=== PATIENT | female | born 1990 ===

== ENCOUNTER 2020-03-19 13:36 | Inpatient (IN) ==
[2020-03-19] MEDS ORDERED: ETOMIDATE 20 MG/10 ML VIAL IV ONE ×2 (15:00→15:05)
[2020-03-19] MEDS ORDERED: VECURONIUM 10 MG VIAL IV ONE ×2 (15:01→15:06)
[2020-03-19] MEDS ORDERED: niCARdipine INJ 25 MG in SODIUM CHLORIDE 0.9% 240 ML IV PRN (15:25)
[2020-03-19] MEDS ORDERED: niCARdipine 25 MG/10 ML VIAL IV ONE (15:26)
[2020-03-19] MEDS ORDERED: ONDANSETRON 4 MG/2 ML VIAL IV PRN (15:55)
[2020-03-19] MEDS ORDERED: hydrALAZINE 20 MG/1 ML VIAL IV PRN (15:55)
[2020-03-19] MEDS ORDERED: ALBUTEROL 2.5 MG/3 ML NEB RESP TX PRN (15:55)
[2020-03-19] MEDS ORDERED: ACETAMINOPHEN 325 MG TABLET PO PRN (15:55)
[2020-03-19] MEDS ORDERED: DOCUSATE SODIUM 100 MG CAPSULE PO PRN (15:58)
[2020-03-19] MEDS ORDERED: PANTOPRAZOLE 40 MG VIAL IV SCH (16:00)
[2020-03-19] MEDS: SEVELAMER CARBONATE 800 MG TABLET PO SCH (16:57)
[2020-03-19] MEDS ORDERED: METOPROLOL TARTRATE 5 MG/5 ML VIAL IV ONE (17:27)
[2020-03-19 17:47] LABS: ABG Base Excess -6.7 MMOL/L (-2.5-2.5); ABG Oxygen Saturation 95.1 % (95-100); ABG PH 7.317 (7.35-7.45); ABG PO2 91.5 MM HG (80-95); ABG TCO2 16.8 MMOL/L (23-27); Allen Test Positive; Pt O2 Delivery Device Ventilator
[2020-03-19] MEDS ORDERED: MIDAZOLAM 100 MG in SODIUM CHLORIDE 0.9% 80 ML IV PRN (17:55)
[2020-03-19] MEDS ORDERED: fentaNYL INJ 1,250 MCG in SODIUM CHLORIDE 0.9% 225 ML IV PRN (17:55)
[2020-03-19] MEDS ORDERED: NOREPINEPHRINE 4 MG/4 ML VIAL IV ONE (19:37)
[2020-03-19] MEDS: NOREPINEPHRINE 8 MG in SODIUM CHLORIDE 0.9% 242 ML IV PRN (19:43)
[2020-03-19] MEDS ORDERED: carvediloL 12.5 MG TABLET PO SCH (21:00)
[2020-03-19] MEDS ORDERED: DEXTROSE 50% 25 GM/50 ML VIAL IV ONE (23:21)
[2020-03-20] MEDS ORDERED: DEXTROSE 50% 25 GM/50 ML VIAL IV ONE (03:46)
[2020-03-20 04:37] LABS: ABG Base Excess -2.7 MMOL/L (-2.5-2.5); ABG HCO3 18.5 MMOL/L (20-26); ABG Oxygen Saturation 99.8 % (95-100); ABG PCO2 21.1 MM HG (35-48); ABG PH 7.561 (7.35-7.45); ABG PO2 394.6 MM HG (80-95); ABG TCO2 19.2 MMOL/L (23-27); Allen Test Positive; Pt O2 Delivery Device Ventilator
[2020-03-20 05:24] LABS: Eosinophils % 1.1 % (0.00-10.9); Hematocrit 24.6 VOL% (35.7-47.0); Hemoglobin 8.5 GM/DL (12.0-16.0); Immature Granulocytes % 0.3 %; Immature Granulocytes Absolute 0.01 #; Lymphocytes # 0.3 10*3/uL (1.4-4.0); Mean Corpuscular HGB Conc 34.6 GM/DL (32-36); Mean Corpuscular Volume 91.4 FL (87-102); Mean Platelet Volume 10.8 FL (9.6-12.0); Monocytes % 2.5 % (1.7-12.7); Neutrophils % 87.1 % (38.7-73.9); Red Blood Count 2.69 MC/CUMM (3.8-5.5); Red Cell Distribution Width 15.5 % (9.3-17.3); White Blood Count 3.6 T/CUMM (4-12)
[2020-03-20 05:35] LABS: Platelet Count 39 T/CUMM (130-400)
[2020-03-20 05:51] LABS: Albumin 2.1 G/DL (3.4-5.0); Bilirubin,Total 1.3 MG/DL (0.2-1.0); Calcium 8.2 MG/DL (8.5-10.1); Osmolality,Calculated 307.3 MOS/KG (273-304)
[2020-03-20] MEDS ORDERED: SODIUM CHLORIDE 0.9% 1,000 ML IV PRN (06:24)
[2020-03-20 06:40] LABS: Band Neutrophils 33 % (0-10); Lymphocytes 14 % (20-55); Platelet Estimate Decreased; Segmented Neutrophils 50 % (50-85); Total Cells Counted 100
[2020-03-20 06:43] LABS: Anisocytosis 2+; Macrocytosis 1+
[2020-03-20 07:34] LABS: INR 1.4; PT Patient Result 14.3 SECS (9.8-11.9); Partial Thromboplastin Time 38.3 SECS (23.9-33.8)
[2020-03-20] MEDS ORDERED: MANNITOL IV SCH ×2 (08:00→16:00)
[2020-03-20] MEDS: SEVELAMER CARBONATE 800 MG TABLET PO SCH ×2 (08:33→13:23)
[2020-03-20] MEDS ORDERED: predniSONE 20 MG TABLET PO SCH (09:00)
[2020-03-20] MEDS ORDERED: amLODIPine 10 MG TABLET PO SCH (09:00)
[2020-03-20] MEDS: NOREPINEPHRINE 8 MG in SODIUM CHLORIDE 0.9% 242 ML IV PRN (13:36)
[2020-03-20 13:52] VITALS: BP 111/82
== END 2020-03-20 14:25 | disposition expired | DRG 208 ==
LOC: N.ICU 15:42
PROVIDERS: ADMIT Family Medicine; ATTEND Family Medicine